=== PATIENT | male | born 1980 | race Caucasian/White ===

== ENCOUNTER 2023-04-22 14:26 | Emergency (ER) | payer SELFPAY ==
[~2023-04-22] VITALS: Ht 170.2 cm; Wt 77.2 kg
[2023-04-22 14:35] VITALS: O2SAT 99
[2023-04-22] MEDS: LORAZEPAM 2MG/ML INJ IM STA (15:07)
[2023-04-22] MEDS: LORAZEPAM 2MG/ML INJ IM ONE (15:37)
[2023-04-22 16:51] LABS: HEMATOCRIT. 46.9 % (42.0-52.0); HEMOGLOBIN. 15.8 g/dL (14.0-18.0); MEAN CORPUSCULAR HEMOGLOBIN 30.8 pg (28.0-32.0); MEAN CORPUSCULAR HGB CONC 33.8 g/dL (31.0-37.0); MEAN CORPUSCULAR VOLUME 91.1 fL (80.0-94.0); MEAN PLATELET VOLUME 8.5 fl (7.4-10.4); PLATELET 217 x1000/uL (130-400); RED BLOOD CELL COUNT 5.14 mill/uL (4.7-6.1); RED CELL DISTRIBUTION WIDTH 13.5 % (11.6-14.6)
[2023-04-22 17:03] LABS: DIFFERENTIAL COMMENT 1
[2023-04-22 17:06] LABS: AMMONIA < 17 uMol/L (<32)
[2023-04-22 17:08] LABS: ACETAMINOPHEN < 2 ug/mL (10-30); ALANINE AMINOTRANSFERASE 16 IU/L (10-49); ALBUMIN 5.2 g/dL (3.2-4.8); ASPARTATE AMINOTRANSFERASE 32 IU/L (<34); CALCIUM 9.2 mg/dL (8.7-10.4); CARBON DIOXIDE 23 mEq/L (21-32); CHLORIDE 106 mEq/L (98-107); CREATINE KINASE 1020 IU/L (46-171); CREATININE 1.7 mg/dL (0.6-1.3); GLUCOSE 80 mg/dL (70-105); POTASSIUM 3.3 mEq/L (3.5-5.1); PROTEIN TOTAL 8.2 g/dL (6.0-8.3); SODIUM 144 mEq/L (136-145); THYROID STIMULATING HORMONE 1.95 uIU/mL (0.55-4.78); TROPONIN I HIGH SENSITIVITY 9 ng/L (3.0-53); UREA NITROGEN BLOOD 25 mg/dL (9-23)
[2023-04-22 17:11] LABS: ETHANOL BLOOD < 10 mg/dL (<10)
[2023-04-22 17:20] LABS: PLATELET ESTIMATE NORMAL
[2023-04-22] MEDS: SODIUM CHLORIDE 0.9% 1,000 ML IV ONE ×2 (17:45)
[2023-04-22 22:52] LABS: CLARITY URINE CLEAR (CLEAR); COLOR URINE DARK YELLOW (YELLOW); GLUCOSE URINE NEGATIVE (NEGATIVE); KETONES URINE 1+ (NEGATIVE); LEUKOCYTE ESTERASE URINE NEGATIVE (NEGATIVE); NITRITE URINE NEGATIVE (NEGATIVE); OCCULT BLOOD URINE NEGATIVE (NEGATIVE); PH URINE 5.5 (4.5-8.0); PROTEIN URINE 1+ (NEGATIVE); SPECIFIC GRAVITY URINE 1.024 (1.005-1.030)
[2023-04-22] MEDS ORDERED: LORAZEPAM 2MG/ML INJ IV PRN (23:00)
[2023-04-22] MEDS ORDERED: IPRATROPIUM/ALBUTEROL 0.5-3(2.5)MG/3ML NEB HHN PRN (23:00)
[2023-04-22] MEDS ORDERED: ONDANSETRON HCL 4MG/2ML INJ IV PRN (23:00)
[2023-04-22] MEDS ORDERED: ACETAMINOPHEN 325MG TABLET PO PRN (23:00)
[2023-04-22 23:02] LABS: *AMPHETAMINES SCREEN URINE NEGATIVE (NEGATIVE); *BARBITURATES SCREEN URINE NEGATIVE (NEGATIVE); *BENZODIAZEPINES SCREEN URINE NEGATIVE (NEGATIVE); *COCAINE SCREEN URINE PRESUMPTIVE POSITIVE (NEGATIVE); CANNABINOID URINE SCREEN PRESUMPTIVE POSITIVE (NEGATIVE); ECSTASY MDMA SCREEN URINE NEGATIVE (NEGATIVE); METHADONE URINE SCREEN Neg (NEGATIVE); OPIATES URINE SCREEN PRESUMPTIVE POSITIVE (NEGATIVE); PHENCYCLIDINE URINE SCREEN NEGATIVE (NEGATIVE)
[2023-04-22 23:12] LABS: HYALINE CASTS URINE 0-5 /lpf
[2023-04-22 23:13] LABS: BACTERIA URINE NONE SEEN; RBC URINE 0-2 /hpf (0-2); SQUAMOUS EPITHELIAL CELL URINE RARE /lpf (RARE/1+); WBC URINE 0-2 /hpf (0-2)
[2023-04-22 23:29] LABS: D-DIMER 0.68 mg/L FEU (<0.50); PROTHROMBIN TIME 11.1 sec (9.6-11.0)
[2023-04-22 23:33] LABS: PHOSPHORUS 5.4 mg/dL (2.5-4.9)
[2023-04-22] MEDS: PANTOPRAZOLE SODIUM 40 MG/VIAL IV SCH (23:48)
[2023-04-22] MEDS: MVI, ADULT NO.1 10 ML, FOLIC ACID 1 MG, THIAMINE HCL 100 MG in SODIUM CHLORIDE 0.9% 1,0... IV SCH (23:48)
[2023-04-23] MEDS: NALOXONE HCL 0.4MG/ML 1ML VIAL IV NR (00:04)
[2023-04-23 00:40] LABS: BG BASE EXCESS -6.7 mmol/L (-2.0-2.0); BG CARBOXYHEMOGLOBIN 0.9 % (0.5-1.5); BG DEOXYHEMOGLOBIN 1.1 % (0.0-5.0); BG FRACTION INSPIRED OXYGEN 21; BG HCO3 ACT 17.4 mmol/L (22.0-26.0); BG METHEMOGLOBIN 0.4 % (0.0-1.5); BG OXYGEN SATURATION 98.9 % (92.0-98.5); BG OXYHEMOGLOBIN 97.6 % (94.0-97.0); BG PCO2 31.4 mmHg (35.0-45.0); BG PH 7.361 (7.350-7.450); BG PO2 139.7 mmHg (75.0-100.0); BG SAMPLE SITE RIGHT RADIAL; BG TOTAL HEMOGLOBIN 15.5 g/dL (12.0-18.0); BG VENT MODE ROOM AIR
[2023-04-23 02:00] VITALS: TEMP 98
[2023-04-23 06:26] LABS: BASOPHILS % 0.5 % (0.0-2.0); EOSINOPHILS % 2.1 % (0.0-5.0); HEMATOCRIT. 41.1 % (42.0-52.0); HEMOGLOBIN. 13.8 g/dL (14.0-18.0); LYMPHOCYTES % 29.6 % (20.0-50.0); MEAN CORPUSCULAR HEMOGLOBIN 31.4 pg (28.0-32.0); MEAN CORPUSCULAR HGB CONC 33.7 g/dL (31.0-37.0); MEAN CORPUSCULAR VOLUME 93.3 fL (80.0-94.0); MEAN PLATELET VOLUME 8.7 fl (7.4-10.4); MONOCYTES % 8.6 % (2.0-8.0); NEUTROPHILS % 59.2 % (40.0-76.0); PLATELET 209 x1000/uL (130-400); RED CELL DISTRIBUTION WIDTH 13.4 % (11.6-14.6); WHITE BLOOD COUNT 8.9 x1000/uL (4.5-11.0)
[2023-04-23 06:38] LABS: CREATINE KINASE MB FRACTION 11.4 ng/mL (0.5-3.6)
[2023-04-23 06:41] LABS: ALANINE AMINOTRANSFERASE 15 IU/L (10-49); ALBUMIN 4.2 g/dL (3.2-4.8); ASPARTATE AMINOTRANSFERASE 35 IU/L (<34); BILIRUBIN TOTAL 1.3 mg/dL (0.1-1.0); CALCIUM 8.6 mg/dL (8.7-10.4); CARBON DIOXIDE 22 mEq/L (21-32); CHLORIDE 110 mEq/L (98-107); CHOLESTEROL 120 mg/dL (<200); GLUCOSE 64 mg/dL (70-105); HDL CHOLESTEROL 44 mg/dL (>55); LDL CHOLESTEROL 58 mg/dL (5-100); POTASSIUM 4.1 mEq/L (3.5-5.1); PROTEIN TOTAL 6.5 g/dL (6.0-8.3); SODIUM 143 mEq/L (136-145); TRIGLYCERIDE 72 mg/dL (0-150); UREA NITROGEN BLOOD 20 mg/dL (9-23)
[2023-04-23 12:19] VITALS: BP 106/69; PULSE 65; RESP 18
== END 2023-04-23 11:51 | disposition home or self-care (01) ==
LOC: ER 14:46 → EDBEDREQ 19:52 → EDBEDREQTM 04-23 06:14 → EDBEDREQDT 04-23 06:14 → ER 04-23 11:51
DX: M62.82 Rhabdomyolysis (principal); N17.9 Acute kidney failure, unspecified; R41.82 Altered mental status, unspecified; F17.200 Nicotine dependence, unspecified, uncomplicated; Z20.822 Contact with and (suspected) exposure to COVID-19
CPT/HCPCS: 80053 ×2; 80305; 81003; 80307; 80329; 80320; 82140; 82550 ×2; 83880; 83605; 83690; 83735; 84100; 84443; 85025 ×2; 85379; 85610; 84484 ×2; 36415 ×2; 84145; 71045; 96361; 96365; 96372; 99285; 87426; 80061; 82553; 82962; 70450; 82805; 82375; 96367; 96375; 36600; J2060; C9113 ×2; J7030; Z7610; J2310; G0480